=== PATIENT | female | born 1950 | race Caucasian/White ===

== ENCOUNTER 2018-07-09 04:52 | Inpatient (IN) ==
[2018-07-09] MEDS ORDERED: CEFEPIME 1,000 MG in SODIUM CHLORIDE 0.9% 100 ML IV STA (06:03)
[2018-07-09 06:51] LABS: Basophils % 0.2 % (0.0-0.8); Hematocrit 41.5 VOL% (35.7-47.0); Hemoglobin 14.3 GM/DL (12.0-16.0); Immature Granulocytes % 0.5 %; Immature Granulocytes Absolute 0.11 #; Lymphocytes % 9.4 % (21.3-54.2); Mean Corpuscular HGB Conc 34.5 GM/DL (32-36); Mean Corpuscular Hemoglobin 32 PG (27-34); Mean Corpuscular Volume 91.6 FL (87-102); Mean Platelet Volume 10.9 FL (9.6-12.0); Monocytes # 1.6 10*3/uL (0.11-0.8); Monocytes % 7.6 % (1.7-12.7); Neutrophils # 17.7 10*3/uL (1.4-7.4); Neutrophils % 82.3 % (38.7-73.9); Platelet Count 276 T/CUMM (130-400); Red Blood Count 4.53 MC/CUMM (3.8-5.5); Red Cell Distribution Width 12.3 % (9.3-17.3); White Blood Count 21.6 T/CUMM (4-12)
[2018-07-09 07:02] LABS: Alanine Aminotransferase 387 U/L (13-56); Albumin 3.2 G/DL (3.4-5.0); Alkaline Phosphatase 152 U/L (45-117); Aspartate Amino Transferase 431 U/L (0-37); Blood Urea Nitrogen 16 MG/DL (7-18); Calcium 8.8 MG/DL (8.5-10.1); Glucose 152 MG/DL (74-106); Osmolality,Calculated 273.1 MOS/KG (273-304); Potassium 3.6 MMOL/L (3.5-5.1); Sodium 135 MMOL/L (136-145); Total Protein 8.4 G/DL (6.4-8.3)
[2018-07-09 07:39] LABS: Apearance,Urine CLEAR (Clear); Bacteria,Urine Occasional /HPF (Few); Blood, Urine Moderate mg/dL (Negative); Glucose,Urine (UA) Negative (Negative); Ketones,Urine Negative (Negative); Mucus,Urine Occasional /LPF (Occasional); Nitrite,Urine Negative (Negative); Protein,Urine 100 MG/DL; RBC,Urine 60 /HPF (0-4); Squamous Epithelial Cell,Urine Occasional /HPF (0-10); Urine Color Amber (Yellow); Urine Specific Gravity 1.017 (1.001-1.035); WBC,Urine 225 /HPF (0-6)
[2018-07-09 08:10] LABS: Band Neutrophils 6 % (0-10); Lymphocytes 8 % (20-55); Platelet Estimate Normal; Segmented Neutrophils 85 % (50-85); Total Cells Counted 100
[2018-07-09] MEDS ORDERED: SODIUM CHLORIDE 0.9% 1,000 ML IV STA (08:10)
[2018-07-09] MEDS ORDERED: ACETAMINOPHEN 650 MG SUPP RECTAL STA (08:11)
[2018-07-09 08:56] LABS: Bilirubin,Urine Small mg/dL (Negative)
[2018-07-09 09:06] LABS: Lactic Acid 5.3 MMOL/L (0.4-2.0)
[2018-07-09] MEDS ORDERED: ONDANSETRON 4 MG/2 ML VIAL IV PRN (10:09)
[2018-07-09] MEDS ORDERED: ENOXAPARIN 30 MG/0.3 ML SYRINGE SUBCUT SCH (10:30)
[2018-07-09 10:44] LABS: Lactic Acid 3.8 MMOL/L (0.4-2.0)
[2018-07-09 11:49] LABS: Sedimentation Rate-Westergren 75 MM/HR (0-30)
[2018-07-09] MEDS: SODIUM CHLORIDE 0.9% 1,000 ML IV SCH ×3 (13:12→20:38)
[2018-07-09] MEDS: PIPERACILLIN/TAZOBACTAM 3,375 MG in SODIUM CHLORIDE 0.9% 100 ML IV SCH ×2 (13:12→20:31)
[2018-07-09 13:49] LABS: INR 1.7; PT Patient Result 17.4 SECS; Partial Thromboplastin Time 32.8 SECS (0-40)
[2018-07-09] MEDS ORDERED: SODIUM CHLORIDE 0.9% 1,000 ML IV ONE (16:21)
[2018-07-09] MEDS ORDERED: WARFARIN 5 MG TABLET PEG SCH (18:00)
[2018-07-09 18:49] LABS: Lactic Acid 7.8 MMOL/L (0.4-2.0)
[2018-07-09] MEDS: DOCUSATE SODIUM 100 MG CAPSULE PO SCH (20:30)
[2018-07-09] MEDS: levETIRAcetam LIQUID 100 MG/ML 30 ML/BOTTLE PEG SCH (20:30)
[2018-07-09] MEDS: PHENYTOIN 100 MG/4 ML UDCUP PEG SCH (20:30)
[2018-07-09] MEDS ORDERED: ACETAMINOPHEN 650 MG SUPP RECTAL PRN (21:10)
[2018-07-10] MEDS: SODIUM CHLORIDE 0.9% 1,000 ML IV SCH ×4 (00:44→18:56)
[2018-07-10] MEDS: PIPERACILLIN/TAZOBACTAM 3,375 MG in SODIUM CHLORIDE 0.9% 100 ML IV SCH ×3 (04:23→20:25)
[2018-07-10 05:02] LABS: Basophils # 0.1 10*3/uL (0.0-0.2); Basophils % 0.3 % (0.0-0.8); Eosinophils % 0.1 % (0.00-10.9); Hematocrit 34.6 VOL% (35.7-47.0); Hemoglobin 11.6 GM/DL (12.0-16.0); Immature Granulocytes % 0.6 %; Immature Granulocytes Absolute 0.11 #; Lymphocytes # 1.7 10*3/uL (1.4-4.0); Lymphocytes % 9.2 % (21.3-54.2); Mean Corpuscular HGB Conc 33.5 GM/DL (32-36); Mean Corpuscular Hemoglobin 31 PG (27-34); Mean Corpuscular Volume 92.3 FL (87-102); Mean Platelet Volume 10.9 FL (9.6-12.0); Monocytes # 1.5 10*3/uL (0.11-0.8); Monocytes % 8.3 % (1.7-12.7); Neutrophils # 15.2 10*3/uL (1.4-7.4); Neutrophils % 81.5 % (38.7-73.9); Platelet Count 206 T/CUMM (130-400); Red Blood Count 3.75 MC/CUMM (3.8-5.5); Red Cell Distribution Width 13.2 % (9.3-17.3); White Blood Count 18.7 T/CUMM (4-12)
[2018-07-10 05:36] LABS: Calcium 7.9 MG/DL (8.5-10.1); Osmolality,Calculated 284.3 MOS/KG (273-304); Potassium 3.2 MMOL/L (3.5-5.1)
[2018-07-10 08:13] LABS: Albumin 2.4 G/DL (3.4-5.0); Bilirubin,Direct 2.41 MG/DL (0.0-0.20); Bilirubin,Indirect 0.6 MG/DL (0.0-1.0); Total Protein 6.6 G/DL (6.4-8.3)
[2018-07-10] MEDS: DOCUSATE SODIUM 100 MG CAPSULE PO SCH ×2 (08:38→20:22)
[2018-07-10] MEDS: levETIRAcetam LIQUID 100 MG/ML 30 ML/BOTTLE PEG SCH ×3 (08:38→20:23)
[2018-07-10] MEDS: CHOLECALCIFEROL 5,000 UNIT TABLET PEG SCH (08:38)
[2018-07-10] MEDS: SERTRALINE 50 MG TABLET PEG SCH (08:38)
[2018-07-10] MEDS: PANTOPRAZOLE 40 MG VIAL IV SCH (08:39)
[2018-07-10] MEDS: PHENYTOIN 100 MG/4 ML UDCUP PEG SCH ×2 (08:49→20:23)
[2018-07-10] MEDS ORDERED: Omeprazole [Prilosec] 20 MG PEG SCH (09:00)
[2018-07-11] MEDS: SODIUM CHLORIDE 0.9% 1,000 ML IV SCH ×4 (01:15→18:29)
[2018-07-11] MEDS: PIPERACILLIN/TAZOBACTAM 3,375 MG in SODIUM CHLORIDE 0.9% 100 ML IV SCH ×3 (04:01→21:20)
[2018-07-11] MEDS: levETIRAcetam LIQUID 100 MG/ML 30 ML/BOTTLE PEG SCH ×3 (10:13→21:26)
[2018-07-11] MEDS: PHENYTOIN 100 MG/4 ML UDCUP PEG SCH ×2 (10:13→21:26)
[2018-07-11] MEDS: CHOLECALCIFEROL 5,000 UNIT TABLET PEG SCH (10:14)
[2018-07-11] MEDS: DOCUSATE SODIUM 100 MG CAPSULE PO SCH ×2 (10:14→21:27)
[2018-07-11] MEDS: SERTRALINE 50 MG TABLET PEG SCH (10:15)
[2018-07-11] MEDS: POTASSIUM CHLORIDE 20 MEQ/15 ML UDCUP PER TUBE PRN ×2 (10:15→14:36)
[2018-07-11] MEDS: PANTOPRAZOLE 40 MG VIAL IV SCH (10:39)
[2018-07-11 13:08] LABS: Albumin 2.3 G/DL (3.4-5.0); Bilirubin,Total 4.5 MG/DL (0.2-1.0); Calcium 8.1 MG/DL (8.5-10.1); Osmolality,Calculated 283.3 MOS/KG (273-304); Potassium 3.5 MMOL/L (3.5-5.1); Total Protein 6.8 G/DL (6.4-8.3)
[2018-07-11] MEDS ORDERED: WARFARIN 3 MG TABLET PEG SCH (18:00)
[2018-07-12] MEDS: PIPERACILLIN/TAZOBACTAM 3,375 MG in SODIUM CHLORIDE 0.9% 100 ML IV SCH ×2 (05:00→14:05)
[2018-07-12] MEDS: SODIUM CHLORIDE 0.9% 1,000 ML IV SCH ×3 (05:26→17:55)
[2018-07-12 06:52] LABS: INR 2.6
[2018-07-12 06:54] LABS: PT Patient Result 26.8 SECS
[2018-07-12 07:15] LABS: Albumin 2.3 G/DL (3.4-5.0); Bilirubin,Direct 4.46 MG/DL (0.0-0.20); Bilirubin,Indirect 1.8 MG/DL (0.0-1.0); Bilirubin,Total 6.3 MG/DL (0.2-1.0); Total Protein 6.6 G/DL (6.4-8.3)
[2018-07-12 10:07] LABS: Basophils % 0.2 % (0.0-0.8); Eosinophils % 0.2 % (0.00-10.9); Hematocrit 32.8 VOL% (35.7-47.0); Hemoglobin 11.3 GM/DL (12.0-16.0); Immature Granulocytes % 0.9 %; Immature Granulocytes Absolute 0.11 #; Lymphocytes # 1.9 10*3/uL (1.4-4.0); Lymphocytes % 15.1 % (21.3-54.2); Mean Corpuscular HGB Conc 34.5 GM/DL (32-36); Mean Corpuscular Hemoglobin 32 PG (27-34); Mean Corpuscular Volume 92.1 FL (87-102); Mean Platelet Volume 10.7 FL (9.6-12.0); Monocytes # 1.1 10*3/uL (0.11-0.8); Monocytes % 8.6 % (1.7-12.7); Neutrophils # 9.5 10*3/uL (1.4-7.4); Platelet Count 194 T/CUMM (130-400); Red Blood Count 3.56 MC/CUMM (3.8-5.5); Red Cell Distribution Width 13.1 % (9.3-17.3); White Blood Count 12.6 T/CUMM (4-12)
[2018-07-12 10:23] LABS: Calcium 8.4 MG/DL (8.5-10.1); Osmolality,Calculated 271.8 MOS/KG (273-304); Potassium 2.6 MMOL/L (3.5-5.1)
[2018-07-12] MEDS: levETIRAcetam LIQUID 100 MG/ML 30 ML/BOTTLE PEG SCH ×3 (10:39→21:48)
[2018-07-12] MEDS: CHOLECALCIFEROL 5,000 UNIT TABLET PEG SCH (10:39)
[2018-07-12] MEDS: SERTRALINE 50 MG TABLET PEG SCH (10:39)
[2018-07-12] MEDS: DOCUSATE SODIUM 100 MG CAPSULE PO SCH ×2 (10:39→21:49)
[2018-07-12] MEDS: PHENYTOIN 100 MG/4 ML UDCUP PEG SCH ×2 (10:39→21:47)
[2018-07-12] MEDS: PANTOPRAZOLE 40 MG VIAL IV SCH (10:39)
[2018-07-12 10:40] LABS: Thyroid Stimulating Hormone 1.23 uIU/ml (0.358-3.74)
[2018-07-12] MEDS: POTASSIUM CHLORIDE RIDER 10 MEQ in PREMIX 1 EACH IV PRN ×2 (15:17→23:00)
[2018-07-12] MEDS ORDERED: MAGNESIUM SULF RIDER 2 GM in PREMIX 1 EACH IV ONE (17:12)
[2018-07-12] MEDS ORDERED: POTASSIUM CHLORIDE 20 MEQ/15 ML UDCUP PER TUBE ONE (17:17)
[2018-07-12] MEDS: CIPROFLOXACIN INJ 400 MG in PREMIX 1 EACH IV SCH (21:48)
[2018-07-13] MEDS: POTASSIUM CHLORIDE RIDER 10 MEQ in PREMIX 1 EACH IV PRN ×4 (04:10→07:35)
[2018-07-13 05:16] LABS: Albumin 1.8 G/DL (3.4-5.0); Bilirubin,Direct 3.39 MG/DL (0.0-0.20); Bilirubin,Indirect 1.2 MG/DL (0.0-1.0); Bilirubin,Total 4.6 MG/DL (0.2-1.0); Total Protein 6.1 G/DL (6.4-8.3)
[2018-07-13 05:17] LABS: Calcium 7.5 MG/DL (8.5-10.1); Osmolality,Calculated 266.1 MOS/KG (273-304); Potassium 2.8 MMOL/L (3.5-5.1); Prealbumin 6.7 MG/DL (20-40)
[2018-07-13] MEDS ORDERED: POTASSIUM CHLORIDE 20 MEQ TABLET PO ONE (07:44)
[2018-07-13] MEDS ORDERED: POTASSIUM CHLORIDE 20 MEQ/15 ML UDCUP PER TUBE PRN (08:00)
[2018-07-13] MEDS: DOCUSATE SODIUM 100 MG CAPSULE PO SCH ×2 (08:36→21:07)
[2018-07-13] MEDS: SERTRALINE 50 MG TABLET PEG SCH (08:36)
[2018-07-13] MEDS: PANTOPRAZOLE 40 MG VIAL IV SCH (08:37)
[2018-07-13] MEDS: CHOLECALCIFEROL 5,000 UNIT TABLET PEG SCH (08:37)
[2018-07-13] MEDS: PHENYTOIN 100 MG/4 ML UDCUP PEG SCH ×2 (08:40→21:07)
[2018-07-13 08:41] LABS: Basophils % 0.2 % (0.0-0.8); Eosinophils # 0.1 10*3/uL (0.0-0.87); Eosinophils % 0.8 % (0.00-10.9); Hematocrit 31.8 VOL% (35.7-47.0); Hemoglobin 10.8 GM/DL (12.0-16.0); Immature Granulocytes % 1.1 %; Immature Granulocytes Absolute 0.18 #; Lymphocytes # 2.8 10*3/uL (1.4-4.0); Lymphocytes % 16.7 % (21.3-54.2); Mean Corpuscular Hemoglobin 31 PG (27-34); Mean Corpuscular Volume 91.6 FL (87-102); Mean Platelet Volume 10.7 FL (9.6-12.0); Monocytes # 1.6 10*3/uL (0.11-0.8); Monocytes % 9.9 % (1.7-12.7); Neutrophils # 11.9 10*3/uL (1.4-7.4); Neutrophils % 71.3 % (38.7-73.9); Platelet Count 196 T/CUMM (130-400); Red Blood Count 3.47 MC/CUMM (3.8-5.5); Red Cell Distribution Width 13.2 % (9.3-17.3); White Blood Count 16.6 T/CUMM (4-12)
[2018-07-13] MEDS: levETIRAcetam LIQUID 100 MG/ML 30 ML/BOTTLE PEG SCH ×3 (08:41→21:07)
[2018-07-13] MEDS: PIPERACILLIN/TAZOBACTAM 3,375 MG in SODIUM CHLORIDE 0.9% 100 ML IV SCH ×3 (08:42→16:40)
[2018-07-13] MEDS: CIPROFLOXACIN INJ 400 MG in PREMIX 1 EACH IV SCH ×2 (13:26→22:06)
[2018-07-13] MEDS: POTASSIUM CHLORIDE 20 MEQ TABLET PO SCH ×2 (13:26→21:07)
[2018-07-13] MEDS: SODIUM CHLORIDE 0.9% 1,000 ML IV SCH ×3 (15:37→21:14)
[2018-07-14] MEDS: PIPERACILLIN/TAZOBACTAM 3,375 MG in SODIUM CHLORIDE 0.9% 100 ML IV SCH ×2 (00:59→10:28)
[2018-07-14] MEDS: SODIUM CHLORIDE 0.9% 1,000 ML IV SCH ×2 (01:01→10:24)
[2018-07-14 09:59] LABS: Basophils % 0.3 % (0.0-0.8); Eosinophils # 0.2 10*3/uL (0.0-0.87); Eosinophils % 1.4 % (0.00-10.9); Hematocrit 29.9 VOL% (35.7-47.0); Immature Granulocytes % 2.1 %; Immature Granulocytes Absolute 0.25 #; Lymphocytes # 3.2 10*3/uL (1.4-4.0); Lymphocytes % 26.5 % (21.3-54.2); Mean Corpuscular HGB Conc 33.4 GM/DL (32-36); Mean Corpuscular Hemoglobin 31 PG (27-34); Mean Corpuscular Volume 93.1 FL (87-102); Mean Platelet Volume 10.6 FL (9.6-12.0); Monocytes # 1.3 10*3/uL (0.11-0.8); Monocytes % 10.9 % (1.7-12.7); Neutrophils # 7.1 10*3/uL (1.4-7.4); Neutrophils % 58.8 % (38.7-73.9); Platelet Count 241 T/CUMM (130-400); Red Blood Count 3.21 MC/CUMM (3.8-5.5); Red Cell Distribution Width 13.2 % (9.3-17.3); White Blood Count 12.1 T/CUMM (4-12)
[2018-07-14] MEDS: CHOLECALCIFEROL 5,000 UNIT TABLET PEG SCH (10:12)
[2018-07-14] MEDS: PHENYTOIN 100 MG/4 ML UDCUP PEG SCH (10:12)
[2018-07-14] MEDS: PANTOPRAZOLE 40 MG VIAL IV SCH (10:13)
[2018-07-14] MEDS: SERTRALINE 50 MG TABLET PEG SCH (10:13)
[2018-07-14] MEDS: POTASSIUM CHLORIDE 20 MEQ TABLET PO SCH (10:13)
[2018-07-14] MEDS: DOCUSATE SODIUM 100 MG CAPSULE PO SCH (10:13)
[2018-07-14] MEDS: levETIRAcetam LIQUID 100 MG/ML 30 ML/BOTTLE PEG SCH ×2 (10:15→14:23)
[2018-07-14 10:22] LABS: Albumin 1.7 G/DL (3.4-5.0); Bilirubin,Total 1.8 MG/DL (0.2-1.0); Calcium 7.8 MG/DL (8.5-10.1); Potassium 3.6 MMOL/L (3.5-5.1); Total Protein 6.2 G/DL (6.4-8.3)
[2018-07-14] MEDS: CIPROFLOXACIN INJ 400 MG in PREMIX 1 EACH IV SCH (10:30)
[2018-07-14 10:53] LABS: Eosinophils 2 % (0-10); Lymphocytes 36 % (20-55); Segmented Neutrophils 62 % (50-85); Total Cells Counted 100
[2018-07-14 10:58] LABS: Anisocytosis 1+; Hypochromasia Slight; Polychromasia Few
[2018-07-14 10:59] LABS: Platelet Estimate Normal
[2018-07-14 11:01] LABS: Microcytosis 1+
[2018-07-14 16:00] VITALS: BP 126/74
== END 2018-07-14 16:08 | DRG 872 ==
LOC: EDBD → EDUNIT# → N.ED 04:52 → N.EDINP 10:09 → N.TELES 12:21
PROVIDERS: ADMIT Internal Medicine; ATTEND Internal Medicine